=== PATIENT | male | born 1990 | race Caucasian/White ===

== ENCOUNTER 2024-07-17 15:43 | Emergency (ER) | payer OTHER ==
[~2024-07-17] VITALS: Ht 185.4 cm; Wt 100.1 kg
[~2024-07-17 15:43] MED LIST: ZESTRIL40 MG PO; ZOFRAN4 MG PO
[2024-07-17] MEDS ORDERED: HYDROCODON-ACE1 EA10 PO (17:15)
[2024-07-17] MEDS ORDERED: HYDROCODONE/ACETA 5/325 TAB PO ONE (17:15)
[2024-07-17] MEDS ORDERED: ONDANSETRON ODT4 MG PO (17:15)
[2024-07-17] MEDS ORDERED: ONDANSETRON 4 MG TAB ODT SL ONE (17:15)
[2024-07-17 18:35] VITALS: BP 147/80
== END 2024-07-17 18:35 | disposition home or self-care (01) ==
LOC: ED 15:43
DX: S52.571A Other intraarticular fracture of lower end of right radius, initial encounter for closed fracture (principal); W01.0XXA Fall on same level from slipping, tripping and stumbling without subsequent striking against object, initial encounter
CPT/HCPCS: 29125; 73110; 99283; A9270